=== PATIENT | female | born 1975 | race Caucasian/White ===

== ENCOUNTER 2020-06-04 07:35 | Emergency (ER) | payer BC ==
[2020-06-04 07:40] VITALS: RESP 18; TEMP 97.6
[2020-06-04] MEDS ORDERED: diazePAM 2 MG TAB PO STA (08:02)
[2020-06-04] MEDS ORDERED: LIDOCAINE 5% PATCH TOPICAL STA (08:02)
[2020-06-04] MEDS ORDERED: ACET/COD 300 MG/30 MG STARTER PACK 6 TAB BTL PO STA (08:02)
[2020-06-04] MEDS ORDERED: KETOROLAC 15 MG/ML 1 ML VIAL IM STA (08:02)
--- NOTE | 2020-06-04 08:03 | ED ---
Back Pain HPI - General Chief Complaint: Back Pain/Injury Stated Complaint: Back Pain Time Seen by Provider: 06/04/20 07:41 Source: patient Limitations: no limitations - History of Present Illness Initial Comments: 45-year-old female presenting today for chief complaint of right-sided low back pain. Patient states that around May 19 she went to us it up from the toilet and felt sudden onset of right lower back pain. Patient states is throbbing and hurts to touch and movement. Patient states that is now rating down her right leg and feels like when she had sciatica in the past when she was . She denies loss of sensation of the leg weakness or loss of bowel bladder control urinary retention she denies IV drug use history of cancer falls or direct trauma. Patient states she is able to walk however this does increase the pain. Denies leg swelling. Patient states she's been attempting a heating pack and [id number] medications outpatient. Patient states when the pain persisted she came to the ER for further evaluation she denies urinary symptoms hematuria or abdominal pain chest pain shortness of breath. Patient appears well nontoxic on arrival. - Related Data Previous Rx's Medication Instructions Recorded Cyclobenzaprine [Flexeril] 10 mg PO TID PRN 3 Days #9 tab 06/04/20 Ibuprofen 600 mg PO Q8H PRN 7 Days #21 tab 06/04/20 Allergies Allergy/AdvReac Type Severity Reaction Status Date / Time ampicillin Allergy Unknown Verified 06/04/20 07:40 Childhood Review of Systems ROS Statement: Those systems with pertinent positive or pertinent negative responses have been documented in the HPI. ROS Other: All systems not noted in ROS Statement are negative. Past Medical History Past Medical History: Asthma History of Any Multi-Drug Resistant Organisms: None Reported Past Surgical History: Section Past Psychological History: No Psychological Hx Reported Smoking Status: Current some day smoker Past Alcohol Use History: None Reported Past Drug Use History: None Reported General Exam - General Exam Comments Initial Comments: General: The patient is awake and alert, in no distress Eye: +3 mm pupils are equal, round and reactive to light, extra-ocular movements are intact. No nystagmus. There is normal conjunctiva bilaterally. No signs of icterus. Cardiovascular: There is a regular rate and rhythm. No murmur, rub or gallop is appreciated. Respiratory: Lungs are clear to auscultation, respirations are non-labored, breath sounds are equal. No wheezes, stridor, rales, or rhonchi. Gastrointestinal: Soft, non-distended, non-tender abdomen without masses or organomegaly noted. There is no rebound or guarding present. Musculoskeletal: Normal inspection of the thoracic and lumbar spine no midline tenderness to his right paraspinal tenderness. No pain to palpation of the buttock. No skin changes. Positive right straight leg raise strength of lower extremities is equal and comparison bilaterally no weakness. Patient has full sensation including the saddle region. Patient has +2-5 patellar and achilles reflexes. No spasticity, clonus or fasciculations noted. Radial and DP pulses equal bilaterally 2+. Neurological: A&O x 3. CN II-XII intact grossly, There are no obvious motor or sensory deficits. Coordination appears grossly intact. Speech is normal. Skin: Skin is warm and dry and no rashes or lesions are noted. Psychiatric: Cooperative, appropriate mood & affect, normal judgment. Limitations: no limitations Course Vital Signs 06/04/20 07:36 Temperature 97.6 F Pulse Rate 94 Respiratory 18 Rate Blood Pressure 135/89 O2 Sat by Pulse 96 Oximetry Medical Decision Making - Medical Decision Making No injury. No fevers, no cancer or IVDU. Patient has pain onset when going from sitting to standing. Patient neurovascularly intact. Patient denies symptoms concerning for cauda equina. Patient agreeable to symptomatic treatment and discharge. Discussed case with attending who is agreeable to care plan. Disposition Clinical Impression: Low back pain, Radiculopathy Disposition: HOME SELF-CARE Condition: Good Instructions (If sedation given, give patient instructions): Acute Low Back Pain (ED) Additional Instructions: Please use medication as discussed. Please follow-up with family doctor in the next 2 days. Please return to emergency room if the symptoms increase or worsen or for any other concerns. Prescriptions: Cyclobenzaprine [Flexeril] 10 mg PO TID PRN 3 Days #9 tab PRN Reason: Muscle Spasm Ibuprofen 600 mg PO Q8H PRN 7 Days #21 tab PRN Reason: Pain Is patient prescribed a controlled substance at d/c from ED?: No Referrals: None,Stated [Primary Care Provider] - 1-2 days Time of Disposition: 08:03
[2020-06-04 09:22] VITALS: BP 118/86; PULSE 72
== END 2020-06-04 09:10 | disposition home or self-care (01) ==
LOC: EC 07:35
DX: M54.16 Radiculopathy, lumbar region (principal); F17.200 Nicotine dependence, unspecified, uncomplicated; Z88.1 Allergy status to other antibiotic agents
CPT/HCPCS: 99283; 96372; J1885